=== PATIENT | female | born 1955 | race Hispanic/Latino ===

== ENCOUNTER → 2025-06-14 | Outpatient (CLI) | payer MEDICARE ==
--- NOTE | 2025-06-15 06:31 | HMCIMG ---
EXAMINATION: ULTRASOUND OF THE ABDOMEN WITH COLOR DOPPLER. CLINICAL HISTORY: Gallbladder calculus. COMPARISON: None. TECHNIQUE: Real-time grayscale ultrasound images of the abdomen. In addition, color Doppler is medically necessary to perform in order to evaluate vascularity and blood flow. FINDINGS: Liver: Normal in caliber, the right hepatic lobe measures 15.6 cm in the craniocaudal dimension. There is increased echogenicity of the hepatic parenchyma. There is no intrahepatic biliary ductal dilatation. There is normal spectral Doppler of the main portal vein. There are multiple small scattered calcified areas. Gallbladder: Within normal limits with normal wall thickness (0.2 cm). No hyperemia or pericholecystic free fluid. There are multiple calculi, the largest measure 1.2 cm. Common bile duct is normal in caliber, measuring 0.3 cm. Spleen is normal in caliber and measures 8.4 x 2.4 x 2.8 cm in craniocaudal, AP and transverse dimensions respectively. No focal lesions. Pancreas: Obscured by overlying bowel gas. The kidneys are normal in caliber, the right kidney measures 9.1 x 4.5 x 3.6 cm and the left kidney measures 10.1 x 5.3 x 3.3 cm in craniocaudal, AP, and transverse dimensions respectively. There is normal renal cortical thickness, and cortical echogenicity. There is no renal calculus bilaterally or right hydronephrosis. There is mild left hydronephrosis. The proximal, mid, and distal aspects of abdominal aorta are normal in caliber measuring 2.5 cm, 2.2 cm, and 1.7 cm in the AP dimension respectively. Visualized aspects of the inferior vena cava are unremarkable. IMPRESSION: Hepatic steatosis. Hepatic calcifications, possible granulomas. Cholelithiasis. No cholecystitis. Mild left hydronephrosis. Recommend CT abdomen and pelvis with contrast. /Eddi
== END | disposition home or self-care (01) ==
LOC: RAH 08:23
PROVIDERS: ATTEND Family Medicine
DX: K80.20 Calculus of gallbladder without cholecystitis without obstruction (principal); K76.0 Fatty (change of) liver, not elsewhere classified; N13.30 Unspecified hydronephrosis; K76.89 Other specified diseases of liver
CPT/HCPCS: 76700

== ENCOUNTER → 2025-07-05 | Outpatient (CLI) | payer MEDICARE ==
[2025-07-05 10:06] LABS: CREATININE 0.8 mg/dL (0.5-1.0); GLOMERULAR FILTR. RATE CALC 80.0 mL/min (>90); GLUCOSE,RANDOM 100.0 mg/dL (70-105); SODIUM SERUM 140.0 mmol/L (136-145); UREA NITROGEN, BLOOD 17.0 mg/dL (7-18)
== END | disposition home or self-care (01) ==
LOC: LAB 08:57
PROVIDERS: ATTEND Family Medicine
DX: K75.3 Granulomatous hepatitis, not elsewhere classified (principal)
CPT/HCPCS: 36415; 80048

== ENCOUNTER → 2025-07-06 | Outpatient (CLI) | payer MEDICARE ==
[~2025-07-06] MED LIST: IOHEXOL-350 75 ML VIAL IV ONE
--- NOTE | 2025-07-07 00:12 | HMCIMG ---
EXAM: CT Abdomen without and with Intravenous Contrast CLINICAL HISTORY: Granulomatous hepatitis, not elsewhere classified. TECHNIQUE: Axial computed tomography images of the abdomen without and with intravenous contrast. 75 mL of intravenous contrast was administered. Dose reduction technique was used including one or more of the following: automated exposure control, adjustment of mA and kV according to patient size, and/or iterative reconstruction. Total exam DLP is 1656. CONTRAST: Without and With COMPARISON: Prior sonography of the abdomen dated 06/19/2025. FINDINGS: LUNG BASES: Minimal subsegmental atelectasis is present in the inferior lingular segment. No pleural effusion. LIVER: There are numerous calcific density nodules in the liver, which may represent calcified granulomas. There is a non-enhancing nodule in the subcapsular region of the segment VIII of the liver, suggestive of a simple cyst, measuring 2.5 x 2 cm. GALLBLADDER AND BILE DUCTS: The gallbladder is unremarkable. No calcified stone. No ductal dilation. PANCREAS: Unremarkable. SPLEEN: There are numerous calcific density nodules in the spleen, suggestive of calcified splenic granulomas, the largest measuring 1.8 cm. ADRENAL GLANDS: There is a left adrenal nodule measuring 1 cm, appearing hypodense (HU value 8). The right adrenal is unremarkable. KIDNEYS AND URETERS: There is a 3 mm sized non-obstructive left renal calculus at the upper pole. There is a non-enhancing left renal inferior polar hypodense cyst measuring 1 cm with an eccentric focus of calcification in it. Per consensus, no follow-up is needed for simple Bosniak type 1 and 2 renal cysts, unless the patient has a malignancy history or risk factors. Left hydronephrosis is present, with slight prominence of the left sided renal pelvicalyceal system and abrupt caliber transition at the ureteropelvic junction, suggestive of stricture formation. No right hydronephrosis or nephrolithiasis. STOMACH AND BOWEL: A small sized hiatal hernia is present. There is a small umbilical hernia containing contrast opacified, non-obstructed bowel loops. The appendix is unremarkable, series 2, image 50/55. No obstruction. No wall thickening. No CT evidence of colitis or acute diverticulitis. PERITONEUM: There is an area of non-specific mesenteric fat stranding with few enlarged mesenteric nodes, suggestive of mesenteric panniculitis. No free fluid. No free air. LYMPH NODES: There is an enlarged left para-aortic lymph node measuring 2 x 1.8 cm. Few enlarged mesenteric nodes are present, as part of mesenteric panniculitis. VASCULATURE: There is atheromatous changes in the abdominal aorta without aneurysm or dissection. ABDOMINAL WALL AND SOFT TISSUES: A small umbilical hernia containing contrast opacified, non-obstructed bowel loops. BONES: No acute osseous abnormality. IMPRESSION: 1. Mesenteric panniculitis. There is a small umbilical hernia containing contrast opacified, non-obstructed bowel loops. 2. Calcified hepatic and splenic granulomas. 3. Left para-aortic lymphadenopathy. 4. 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 5. Non-obstructive left renal calculus. 6. Left adrenal nodule measuring 1 cm, appearing hypodense (HU value 8). 7. Other chronic findings as described above. /[place]
== END | disposition home or self-care (01) ==
LOC: RAH 11:06
PROVIDERS: ATTEND Family Medicine
DX: N13.2 Hydronephrosis with renal and ureteral calculous obstruction (principal); K75.3 Granulomatous hepatitis, not elsewhere classified; K65.4 Sclerosing mesenteritis; K42.9 Umbilical hernia without obstruction or gangrene; E27.8 Other specified disorders of adrenal gland; I70.0 Atherosclerosis of aorta; D73.89 Other diseases of spleen; N28.1 Cyst of kidney, acquired; K76.89 Other specified diseases of liver
CPT/HCPCS: 74170; Q9967